=== PATIENT | female | born 1975 | race Caucasian/White ===

== ENCOUNTER 2021-03-17 15:01 | Emergency (ER) | payer OTHER ==
[~2021-03-17] VITALS: Ht 167.6 cm; Wt 127.9 kg
[~2021-03-17 15:01] MED LIST: ALBU90OI INH; AMOX250 PO; CEPH500 PO; CETI10 PO; CRUTCH4 USE; CYCL10 PO; Crutch1 EACH MISC; Cymbalta20 MG PO; ESOM20 PO; GABA400 PO; HYDACE5; HYDACE5 PO; HYDR1TAB94 PO; IBUP600 PO; LYRICA; NAPR500 PO; Norco 5-325 Ta1 EACH PO; OXYACE7.5T PO; PENVK500 PO; Prednisone20 MG PO; Pyridium200 MG PO; SUMA25 PO; TOPI25 PO; Valium5 MG PO
== END 2021-03-17 16:36 | disposition home or self-care (01) ==
LOC: ER 15:01
DX: S93.401A Sprain of unspecified ligament of right ankle, initial encounter (principal); J45.909 Unspecified asthma, uncomplicated; F17.210 Nicotine dependence, cigarettes, uncomplicated; X50.1XXA Overexertion from prolonged static or awkward postures, initial encounter
CPT/HCPCS: 73610; 96372; 99283-25; J1885

== ENCOUNTER → 2021-07-30 | Outpatient (CLI) | payer OTHER ==
[~2021-07-30] MED LIST changes: +ASCO500 PO; +Ferrous Sulfat325 MG PO
[2021-08-03 15:11] LABS: HPV 16 Negative (Negative); HPV 18 Negative (Negative); HPV OTHER HR TYPES Negative (Negative)
== END | disposition home or self-care (01) ==
LOC: LAB SHORT 17:00 → LAB 17:00
PROVIDERS: Obstetrics & Gynecology
DX: Z01.419 Encounter for gynecological examination (general) (routine) without abnormal findings (principal)
CPT/HCPCS: 87624; G0123

== ENCOUNTER 2024-02-15 07:42 | Day surgery (SDC) | payer OTHER | END 2024-02-16 00:20 | disposition home or self-care (01) | LOC: CT 07:42 | DX: I25.10 Atherosclerotic heart disease of native coronary artery without angina pectoris (principal); N18.9 Chronic kidney disease, unspecified; M79.7 Fibromyalgia; K21.9 Gastro-esophageal reflux disease without esophagitis; M81.0 Age-related osteoporosis without current pathological fracture; F17.290 Nicotine dependence, other tobacco product, uncomplicated; Z98.51 Tubal ligation status; Z79.899 Other long term (current) drug therapy; Z90.49 Acquired absence of other specified parts of digestive tract | CPT/HCPCS: 75574; Q9967 ==

== ENCOUNTER 2024-08-19 11:13 | Day surgery (SDC) | payer OTHER ==
[~2024-08-19] VITALS: Ht 170.2 cm; Wt 88.7 kg
[~2024-08-19 11:13] MED LIST changes: +Lactated Ringer's 1,000 ML IV ONE
[2024-08-19] MEDS ORDERED: MEDR10 PO (11:35)
[2024-08-19] MEDS ORDERED: OXYCODONE HCL E PO (11:35)
[2024-08-19] MEDS ORDERED: MIDO5 PO (11:36)
[2024-08-19] MEDS ORDERED: TIZA4 PO (11:36)
[2024-08-19] MEDS ORDERED: Lactated Ringer's 1,000 ML IV ONE (11:41)
[2024-08-19] MEDS ORDERED: Midazolam HCl 1MG / ML 2ML Vial ONE (12:51)
[2024-08-19] MEDS ORDERED: FentaNYL Citrate 50 MCG/ML 2 ML Injection ONE (12:51)
[2024-08-19] MEDS ORDERED: Ondansetron HCl 2 MG / ML 2ML Vial ONE (12:51)
[2024-08-19] MEDS ORDERED: propofoL 20 ML IV ONE (12:51)
[2024-08-19] MEDS ORDERED: Dexamethasone Sod Phos 10 MG/ML 1ML VIAL ONE (12:51)
[2024-08-19] MEDS ORDERED: Glycopyrrolate 0.2 MG/ML 5ML VIAL ONE (13:41)
--- NOTE | 2024-08-19 14:14 | NUR ---
08/19/24 [facility] 150ML FLUID DEFICIT.
[2024-08-19 14:36] VITALS: BP 112/82
[2024-08-19] MEDS ORDERED: Ibuprofen 400 MG Tab ONE (14:46)
[2024-08-22] MEDS ORDERED: FERSU300 PO (13:55)
== END 2024-08-19 15:35 | disposition home or self-care (01) ==
LOC: ORSCSDS 11:13
PROVIDERS: Obstetrics & Gynecology
PROC: 0U5B8ZZ Destruction of Endometrium, Via Natural or Artificial Opening Endoscopic (ICD-10-PCS; principal; 2024-08-19 12:45)
DX: N92.0 Excessive and frequent menstruation with regular cycle (principal); J45.909 Unspecified asthma, uncomplicated; N18.9 Chronic kidney disease, unspecified; F17.290 Nicotine dependence, other tobacco product, uncomplicated; F41.9 Anxiety disorder, unspecified; F32.A Depression, unspecified; Z79.899 Other long term (current) drug therapy; E66.9 Obesity, unspecified; Z68.30 Body mass index [BMI] 30.0-30.9, adult
CPT/HCPCS: 88305; A9270; J1100; J2250; J2405; J2704; J3010; J7120

== ENCOUNTER 2024-08-23 08:18 | Day surgery (SDC) | payer OTHER ==
[~2024-08-23] VITALS: Ht 170.2 cm; Wt 90.9 kg
[2024-08-23 10:45] VITALS: BP 122/80
== END 2024-08-23 10:55 | disposition home or self-care (01) ==
LOC: ORSCMMR 08:18 → ORD 09:00 → ORSCMMR 09:00
PROC: 0DBN8ZX Excision of Sigmoid Colon, Via Natural or Artificial Opening Endoscopic, Diagnostic (ICD-10-PCS; principal; 2024-08-23)
DX: K62.5 Hemorrhage of anus and rectum (principal); R19.4 Change in bowel habit; D12.5 Benign neoplasm of sigmoid colon; K63.5 Polyp of colon; K57.30 Diverticulosis of large intestine without perforation or abscess without bleeding; Z90.49 Acquired absence of other specified parts of digestive tract; K64.4 Residual hemorrhoidal skin tags; F17.290 Nicotine dependence, other tobacco product, uncomplicated; Z79.899 Other long term (current) drug therapy